=== PATIENT | female | born 1945 | race Caucasian/White ===

== ENCOUNTER 2020-05-18 13:49 | Emergency (ER) | payer MEDICARE ==
[~2020-05-18] VITALS: Ht 157.5 cm; Wt 90.2 kg
[2020-05-18 13:50] VITALS: BP 172/83
[2020-05-18] MEDS ORDERED: LOSA100T8 PO (14:52)
[2020-05-18] MEDS ORDERED: POTA10TA17 PO (14:52)
[2020-05-18] MEDS ORDERED: ATOR1TAB21 PO (14:52)
[2020-05-18] MEDS ORDERED: METO1TAB7 PO (14:52)
--- NOTE | 2020-05-18 15:26 | REPVR ---
PROCEDURE INFORMATION: Exam: XR Right Finger(s) Exam date and time: 05/18/2020 2:54 PM Age: 74 years old Clinical indication: Injury or trauma; Fall; Sprain or strain; Finger; Right; Thumb; Additional info: Fall with injury TECHNIQUE: Imaging protocol: XR Right fingers. Views: Minimum 2 views. COMPARISON: No relevant prior studies available. FINDINGS: Bones/joints: There is a fracture seen involving the head of the 1st metacarpal. There is mild posterior angulation. Displacement is up to 3.5 mm. 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 There is osteopenia. Soft tissues: Normal. IMPRESSION: Fracture head of the 1st metacarpal. Electronically signed by: Yovanny Garcia On 05/18/2020 15:25:45 PM
[2020-05-18] MEDS ORDERED: NORCO, ANEXSIA 5/325MG TABLET (HYDROcodone/ACETAMINOPHEN) PO ONE (16:45)
[2020-05-18] MEDS ORDERED: NORC1TAB7 PO (16:49)
--- NOTE | 2020-05-18 17:40 | REPVR ---
PROCEDURE INFORMATION: Exam: CT Head Without Contrast Exam date and time: 05/18/2020 5:20 PM Age: 74 years old Clinical indication: Injury or trauma; Fall; Blunt trauma (contusions or hematomas); Without loss of consciousness; Additional info: Fall with injury to L head, no loc TECHNIQUE: Imaging protocol: Computed tomography of the head without contrast. Radiation optimization: All CT scans at this facility use at least one of these dose optimization techniques: automated exposure control; mA and/or kV adjustment per patient size (includes targeted exams where dose is matched to clinical indication); or iterative reconstruction. COMPARISON: No relevant prior studies available. FINDINGS: Brain: Normal. No hemorrhage. Unremarkable white matter. No mass effect. Cerebral ventricles: No ventriculomegaly. Bones/joints: Unremarkable. No acute fracture. Paranasal sinuses: Visualized sinuses are unremarkable. No fluid levels. Mastoid air cells: Visualized mastoid air cells are well aerated. Soft tissues: Unremarkable. Other findings: There may be an empty sella syndrome. IMPRESSION: No acute intracranial abnormality. Cm/s Electronically signed by: Yovanny Garcia On 05/18/2020 17:39:44 PM
--- NOTE | 2020-05-18 17:42 | REPVR ---
PROCEDURE INFORMATION: Exam: XR Right Wrist Exam date and time: 05/18/2020 2:01 PM Age: 74 years old Clinical indication: Pain; Wrist; Right; Additional info: Fall on sidewalk TECHNIQUE: Imaging protocol: XR Right wrist. Views: 3 or more views. COMPARISON: No relevant prior studies available. FINDINGS: Bones/joints: There is a fracture of the head of the 1st metacarpal minimally displaced. There is osteopenia. There is [id number] arthritic changes seen involving the 1st metacarpal carpal joint. Soft tissues: Normal. IMPRESSION: Fracture 1st metacarpal minimally displaced. Electronically signed by: Yovanny Garcia On 05/18/2020 17:42:37 PM
--- NOTE | 2020-05-18 17:44 | REPVR ---
PROCEDURE INFORMATION: Exam: XR Left Ribs with PA Chest, 3 Views Exam date and time: 05/18/2020 5:03 PM Age: 74 years old Clinical indication: Chest wall pain; Left; Additional info: Fall with pain left sided rib pain R/O FX TECHNIQUE: Imaging protocol: XR Left ribs 3 views with PA chest. COMPARISON: No relevant prior studies available. FINDINGS: Lungs: Unremarkable. No consolidation. Pleural space: Unremarkable. No pleural effusion. No pneumothorax. Heart/Mediastinum: Unremarkable. No cardiomegaly. Bones/joints: Inferior spurring is fairly severe involving the distal acromion. There is no fracture, dislocation or subluxation. IMPRESSION: No acute findings. Electronically signed by: Yovanny Garcia On 05/18/2020 17:44:19 PM
== END 2020-05-18 18:00 | disposition home or self-care (01) ==
LOC: M ED 13:49
DX: S62.291A Other fracture of first metacarpal bone, right hand, initial encounter for closed fracture (principal); W10.9XXA Fall (on) (from) unspecified stairs and steps, initial encounter; Y92.099 Unspecified place in other non-institutional residence as the place of occurrence of the external cause; Y93.89 Activity, other specified; Y99.9 Unspecified external cause status; I10 Essential (primary) hypertension; E78.5 Hyperlipidemia, unspecified; E03.9 Hypothyroidism, unspecified; Z79.899 Other long term (current) drug therapy; Z91.89 Other specified personal risk factors, not elsewhere classified

== ENCOUNTER → 2024-11-26 | Outpatient (CLI) | payer MEDICARE ==
[~2024-11-26] MED LIST: ATOR1TAB21 PO; LOSA100T8 PO; METO1TAB7 PO; NORC1TAB7 PO; POTA-150 PO
== END ==
LOC: M SOG 07:53
PROVIDERS: ATTEND Physician Assistant
DX: M25.532 Pain in left wrist (principal); S52.572D Other intraarticular fracture of lower end of left radius, subsequent encounter for closed fracture with routine healing; S52.612D Displaced fracture of left ulna styloid process, subsequent encounter for closed fracture with routine healing

== ENCOUNTER → 2024-12-11 | Outpatient (CLI) | payer MEDICARE | LOC: M SOG 07:53 | PROVIDERS: ATTEND Physician Assistant | DX: S52.502A Unspecified fracture of the lower end of left radius, initial encounter for closed fracture (principal); W18.30XA Fall on same level, unspecified, initial encounter; Y93.9 Activity, unspecified; Y92.9 Unspecified place or not applicable ==

== ENCOUNTER → 2024-12-25 | Outpatient (CLI) | payer MEDICARE | LOC: M SOG 07:02 | PROVIDERS: ATTEND Physician Assistant | DX: S52.502D Unspecified fracture of the lower end of left radius, subsequent encounter for closed fracture with routine healing (principal); Y93.9 Activity, unspecified; Y92.9 Unspecified place or not applicable ==

== ENCOUNTER → 2025-03-06 | Outpatient (CLI) | payer MEDICARE | LOC: M SOG 06:56 | PROVIDERS: ATTEND Neuromusculoskeletal Medicine, Sports Medicine | DX: M16.11 Unilateral primary osteoarthritis, right hip (principal) ==

== ENCOUNTER → 2025-04-17 | Outpatient (REF) | payer MEDICARE | LOC: M LAB REF 16:37 | PROVIDERS: ATTEND Neuromusculoskeletal Medicine, Sports Medicine | DX: M16.11 Unilateral primary osteoarthritis, right hip (principal) ==

== ENCOUNTER → 2025-06-08 | Outpatient (CLI) | payer MEDICARE ==
[~2025-06-08] MED LIST changes: +TOPR25TA PO; +tumeric
== END ==
LOC: M RAD 08:18
PROVIDERS: ATTEND Neuromusculoskeletal Medicine, Sports Medicine
DX: M16.11 Unilateral primary osteoarthritis, right hip (principal); M17.0 Bilateral primary osteoarthritis of knee; M47.816 Spondylosis without myelopathy or radiculopathy, lumbar region

== ENCOUNTER 2025-06-23 06:04 | Observation (INO) | payer MEDICARE ==
[~2025-06-23] VITALS: Ht 157.5 cm; Wt 88.5 kg
[2025-06-23] VITALS (7 sets, daily range): BP systolic 123–135; BP diastolic 61–76; TEMP 96.8–97.4; O2SAT 94–98
[2025-06-23] MEDS ORDERED: LIDOCAINE 2% 100 MG/5 ML SDV (FOR ANES.) As Ordered ONE (07:22)
[2025-06-23] MEDS ORDERED: MIDAZOLAM INJ 2 MG/2 ML VIAL As Ordered ONE (07:38)
[2025-06-23] MEDS ORDERED: EPINEPHrine INJ 1 MG/ML 1ML AMP As Ordered ONE (07:55)
[2025-06-23] MEDS ORDERED: ROCURONIUM BROMIDE 50MG/5ML VIAL As Ordered ONE (08:07)
[2025-06-23] MEDS ORDERED: dexAMETHasone 4 MG/ML 1 ML VIAL As Ordered ONE (08:08)
[2025-06-23] MEDS ORDERED: ONDANSETRON 4MG/2ML VIAL As Ordered ONE (08:08)
[2025-06-23] MEDS: TRANEXAMIC ACID 100 MG/ML 10ML VIAL As Ordered ONE (08:30)
[2025-06-23] MEDS: ceFAZolin SOD 2 GM IV ONCE IV ONE (08:30)
[2025-06-23] MEDS ORDERED: PHENYLephrine 500MCG 5ML (100MCG/ML) SYRINGE As Ordered ONE (08:37)
[2025-06-23] MEDS ORDERED: ACETAMINOPHEN 1000MG/100ML IV BAG As Ordered ONE (09:00)
[2025-06-23] MEDS ORDERED: PHENYLEPHRINE 10MG/ML 1ML VIAL As Ordered ONE (09:47)
[2025-06-23] MEDS: VANCOMYCIN 1000MG/20ML VIAL As Ordered ONE (10:24)
[2025-06-23] MEDS: KETOROLAC 30 MG/ML 1 ML VIAL As Ordered ONE (10:37)
[2025-06-23] MEDS ORDERED: HYDROMORPHONE HCL 0.5 MG/0.5 ML SYRINGE IV PRN (10:50)
[2025-06-23] MEDS ORDERED: MORPHINE 4 MG/ML 1 ML VIAL IV PRN (10:50)
[2025-06-23] MEDS ORDERED: MORPHINE 10 MG/ML 1 ML VIAL IV PRN (11:15)
[2025-06-23] MEDS ORDERED: ONDANSETRON 4MG/2ML VIAL IV PRN (11:15)
[2025-06-23] MEDS ORDERED: MAALOX 30 ML SUSP *UDC PO PRN (12:30)
[2025-06-23 13:01] LABS: BASO # 0.0 10^3/uL (0.0-0.2); BASO % 0.3 % (0.0-1.0); EOS # 0.0 10^3/uL (0.0-0.5); EOS % 0.1 % (0.0-3.0); LYMPH # 0.8 10^3/uL (1.5-5.0); LYMPH % 6.9 % (24.0-44.0); MONO # 0.3 10^3/uL (0.0-0.8); MONO % 2.3 % (2.0-8.0); NEUTROPHILS # 9.7 10^3/uL (1.5-8.5); NEUTROPHILS % 89.5 % (36.0-66.0); PLATELET COUNT, AUTOMATED 203 10^3/uL (150-450)
[2025-06-23 13:25] LABS: CALCIUM LEVEL 8.6 MG/DL (8.3-10.6); CARBON DIOXIDE LEVEL 29 MMOL/L (20-31); CHLORIDE LEVEL 104 MMOL/L (98-107); CREATININE FOR GFR 0.52 MG/DL (0.55-1.30); GLOMERULAR FILTRATION RATE > 90.0 (>39); MAGNESIUM LEVEL 1.8 MG/DL (1.8-2.4); POTASSIUM SERUM 4.1 MMOL/L (3.5-5.1); SODIUM LEVEL 141 MMOL/L (136-145)
[2025-06-23] MEDS: HYDROmorphone 2 MG TAB PO PRN (14:17)
[2025-06-23] MEDS ORDERED: CELE100C PO (14:39)
[2025-06-23] MEDS ORDERED: CVS500CA5 PO (14:39)
[2025-06-23] MEDS ORDERED: FURO40TA2 PO (14:39)
[2025-06-23] MEDS ORDERED: OMEG10002 PO ×2 (14:39)
[2025-06-23] MEDS ORDERED: CALC600T60 PO (14:39)
[2025-06-23] MEDS ORDERED: THERTAB52 PO (14:39)
[2025-06-23] MEDS ORDERED: D-101000 PO (14:39)
[2025-06-23] MEDS ORDERED: tumeric PO (14:39)
[2025-06-23] MEDS ORDERED: SUZE50TA PO (14:42)
[2025-06-23] MEDS ORDERED: HOME MED LIST COMPLETE! XX SCH (14:45)
[2025-06-23] MEDS: LR 1,000 ML IV SCH (14:50)
[2025-06-23] MEDS: MORPHINE 4 MG/ML 1 ML VIAL IV ONE (17:23)
[2025-06-23] MEDS: ceFAZolin SODIUM 2 GM in DEXTROSE 5% (D5W) ADV/MINI-BAG 50 ML IV SCH (17:23)
[2025-06-23] MEDS: ANALGESIC BALM CRM 3 OZ TOP SCH (20:30)
[2025-06-23] MEDS ORDERED: APIXABAN 2.5 MG TAB PO SCH (21:00)
[2025-06-23] MEDS: ACETAMINOPHEN 325 MG TAB PO PRN (22:22)
[2025-06-24 05:24] VITALS: BP 113/62; TEMP 97.2; O2SAT 97
[2025-06-24] MEDS: APIXABAN 2.5 MG TAB PO SCH (09:06)
[2025-06-24] MEDS: FERROUS SULFATE 325 MG TAB PO SCH (09:07)
[2025-06-24] MEDS: ASCORBIC ACID 500 MG TAB PO SCH (09:08)
[2025-06-24] MEDS: SENNA 8.6 MG TAB PO SCH (09:09)
[2025-06-24 10:00] VITALS: BP 138/68; TEMP 97.2; O2SAT 97
[2025-06-24 10:30] VITALS: BP 138/68; TEMP 97.2; O2SAT 97
[2025-06-24] MEDS ORDERED: SENO8.6T10 PO (11:50)
[2025-06-24] MEDS ORDERED: METH85CR11 TOP (11:50)
[2025-06-24] MEDS ORDERED: ELIQ2.5T PO (11:50)
[2025-06-24] MEDS ORDERED: DILA2TAB6 PO (11:50)
== END 2025-06-24 14:50 | disposition home health service (06) ==
LOC: M SDC 06:04 → M MS5PR 06:05
PROVIDERS: ADMIT Student in an Organized Health Care Education/Training Program; ATTEND Student in an Organized Health Care Education/Training Program
DX: M16.11 Unilateral primary osteoarthritis, right hip (principal); I10 Essential (primary) hypertension; K57.92 Diverticulitis of intestine, part unspecified, without perforation or abscess without bleeding; Z86.718 Personal history of other venous thrombosis and embolism; F41.9 Anxiety disorder, unspecified; G47.33 Obstructive sleep apnea (adult) (pediatric); Z79.899 Other long term (current) drug therapy
CPT/HCPCS: 27130; 36415; 72170; 80048; 83735; 85025; 88300; 96365; 96366; 96375; 97116; 97161; 97165; 97530; 97535; C1713; C1776; G0378; J0131; J0166; J0665; J0666; J0688; J1100; J1885; J2250; J2371; J2405; J3373; S2900

== ENCOUNTER → 2025-07-06 | Outpatient (CLI) | payer MEDICARE ==
[~2025-07-06] MED LIST changes: +CALC600T60 PO; +CELE100C PO; +CVS500CA5 PO; +D-101000 PO; +DILA2TAB6 PO; +ELIQ2.5T PO; +FURO40TA2 PO; +METH85CR11 TOP; +OMEG10002 PO; +SENO8.6T10 PO; +SUZE50TA PO; +THERTAB52 PO; +tumeric PO
== END ==
LOC: M SOG 07:43
PROVIDERS: ATTEND Physician Assistant
DX: M16.11 Unilateral primary osteoarthritis, right hip (principal)